=== PATIENT | male | born 2000 | race Caucasian/White ===

== ENCOUNTER 2022-06-19 10:20 | Emergency (ER) | payer SELFPAY ==
[2022-06-19 10:24] VITALS: BP 122/72; PULSE 95; RESP 14; TEMP 36.7; O2SAT 97
[2022-06-19] MEDS: Normal Saline 1,000 ML 1000 ML IV (11:03)
[2022-06-19] MEDS: Ketorolac 15 MG/ML VIAL IVP (11:20)
[2022-06-19] MEDS: Ondansetron 4 MG/2 ML VIAL IVP (11:20)
[2022-06-19 11:53] LABS: Bilirubin Negative (Negative); Blood Trace-intact (Negative); Clarity Clear (Clear); Glucose Negative (Negative); Ketones 15 mg/dL (Negative); Leukocyte Esterase Negative (Negative); Nitrite Negative (Negative); Specific Gravity 1.025 (1.005-1.025); Urobilinogen 0.2 mg/dL (Up to 0.2); pH 6.5 (5-8)
[2022-06-19 12:08] LABS: Bacteria Rare HPF (Negative); C & S Indicated? Yes; Casts Negative LPF (Negative); Crystals Negative HPF (Negative); Epithelial Cells Rare HPF (Negative); Mucus Moderate (Negative)
--- NOTE | 2022-06-19 12:57 | W.ED.GENAD ---
Discharge Plan Disposition Patient Disposition: Home Discharge Details Clinical Impression: Nausea vomiting and diarrhea Primary Care Provider: Almaz,Local ED Provider: Los Portillo Discharge Instructions Instructions: Acute Nausea and Vomiting (ED) Additional Instructions: Please stay well-hydrated and if you have any significant worsening of symptoms feel free to return the emergency department for reassessment. Otherwise follow-up with your primary care provider if not improving over the next 5 days. You may use the provided nausea medication as needed for further nausea or vomiting. Referrals: Primary Care Provider [Outside] - 5 days (As needed for reassessment) Discharge Data Discharge Date/Time-TO BE ENTERED AT DEPARTURE: 06/19/22 13:16 Medical Decision Making Patient presenting to the emergency department for chief complaint of nausea vomiting diarrhea headache and not feeling well. Patient reports yesterday after eating chicken he started getting sick. He does note that significant other had similar illness a couple days ago which she has fully resolved from. Patient has no significant or worrisome past medical history. Physical exam shows diffuse nontender abdomen with no peritoneal findings, no tenderness in areas of surgical concern and exam is otherwise unremarkable nondiagnostic. We will check patient's labs and pending results will give Toradol Zofran and fluids. CBC shows elevated white count neutrophils and low lymphocytes, slightly low magnesium at 1.7 otherwise nondiagnostic labs. Lipase is within normal range, urinalysis does show ketones and blood. Urinalysis did reflex to culture but given the patient is negative for nitrites and leukocyte esterase and has no urinary symptoms we will hold off on any antibiotics. Patient reassessed and did have improvement of symptoms so we will discharge patient to follow-up on outpatient basis or return for new or worsening symptoms. After discussion of diagnosis and plan of care patient has no further needs, questions, or concerns and states clear understanding to return to the emergency department for any worsening symptoms. This documentation was generated using [employer] dictation system, please disregard any oddities of phrase or misspellings. Lab Data Lab results reviewed: Yes I reviewed the patient's lab results. HPI General Mode of arrival: ambulatory. Date/Time Provider Initiated Documentation: 06/19/22 10:49. Limitations to Documentation: no limitations. Information obtained by: patient and RN notes reviewed. History of Present Illness 22 year old M presents to the emergency department with the chief complaint of Nausea vomiting, described as moderate, Quality is described as aching, and is localized to the abdomen. Patient reports no radiation. Patient started experiencing this day(s) (1) and it has been constant. No relieving factors improve symptom(s), Eating worsens symptoms . Patient did receive the following treatments prior to arrival, none General Stated Complaint: Nausea/Vomit/Diar CARMEN: 3 Review of Systems Constitutional Constitutional: Denies chills, Denies fever(s), Reports headache(s) and Reports poor appetite ENT Ears, Nose, Mouth, and Throat: Reports headache(s) Cardiovascular Cardiovascular: Denies chest pain and Denies dyspnea Respiratory Respiratory: Denies cough and Denies dyspnea Gastrointestinal Gastrointestinal: Reports as per HPI, Reports abdominal pain, Denies melena, Denies change in bowel habits, Denies constipation, Reports diarrhea, Reports nausea and Reports vomiting Genitourinary Genitourinary: Denies hematuria, Denies oliguria, Denies difficulty urinating, Denies urinary hesitancy, Denies urinary incontinence and Denies urinary urgency Integumentary/Breasts Skin/Breast: Denies rash Neurologic Neurologic: Reports headache(s) PFSH All Active Problems (Updated 06/19/22 @ 13:12 by Los Portillo NP) Nausea vomiting and diarrhea (Acute) Social History Smoking risk assessment performed?: No Exam Const General: cooperative Orientation: alert, awake and oriented x3 Resp Effort & Inspection: normal respiratory effort and able to speak in complete sentences Auscultation: clear to auscultation bilaterally Cardio Rate: regular rate Rhythm: regular rhythm Heart Sounds: S1 normal and S2 normal GI Palpation: soft, no hepatosplenomegaly, not firm, no guarding, no masses, no pulsatile masses, not rigid, no splenomegaly and tender (Diffuse nonfocal) Auscultation: normal bowel sounds Back/Spine/Pelvis Back: no CVA tenderness Neuro General: patient alert, patient awake, patient oriented x3, gait normal and moves all extremities Course Vital Signs Vital signs: Vital Signs Temperature 36.7 C 06/19/22 10:24 Pulse 95 H 06/19/22 10:24 Respiratory Rate 14 06/19/22 10:24 Blood Pressure 122/72 06/19/22 10:24 Pulse Oximetry 97 06/19/22 10:24 Temperature 36.7 C 06/19/22 10:24 Temperature Source Oral 06/19/22 10:24 Pulse 95 H 06/19/22 10:24 Respiratory Rate 14 06/19/22 10:24 Respiratory Effort Normal 06/19/22 11:20 Blood Pressure 122/72 06/19/22 10:24 Pulse Oximetry 97 06/19/22 10:24 Pain Level 8 06/19/22 10:24 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 Lab/Test Results Lab/Test Results: 06/19/22 11:37 Urine - Reflex from Ua Urine Culture - Pending Laboratory Tests Range/Units 06/19/22 06/19/22 06/19/22 10:43 10:43 11:37 WBC (4.4-10.8) 10^3/uL 12.12 H RBC (4.36-5.78) 10^6/uL 5.51 Hgb (13.5-17.5) g/dL 16.0 Hct (40.0-50.0) % 46.0 MCV (80-95) fL 84 MCH (27.0-33.0) pg 29.0 MCHC (32.0-36.0) % 34.8 RDW (11.8-14.1) % 11.9 Plt Count (130-400) 10^3/uL 238 MPV (8.0-11.0) fL 9.1 Immature Gran % 0.3 Neutrophils % 90.5 Lymphocytes % 4.8 Monocytes % 3.9 Eosinophils % 0.3 Basophils % 0.2 Nucleated RBC % (0.0-0.3) % 0.0 Absolute Neutrophils (1.2-6.7) 10^3/uL 10.97 H Absolute Lymphocytes (1.2-3.4) 10^3/uL 0.58 L Absolute Monocytes (0.1-0.8) 10^3/uL 0.47 Absolute Eosinophils (0.0-0.7) 10^3/uL 0.04 Absolute Basophils (0.0-0.2) 10^3/uL 0.02 Sodium (136-145) mmol/L 140 Potassium (3.5-5.1) mmol/L 3.6 Chloride (98-107) mmol/L 103 Carbon Dioxide (21.0-32.0) mmol/L 28.2 Anion Gap (3-11) mmol/L 8.8 BUN (7-18) mg/dL 13 Creatinine (0.70-1.30) mg/dL 1.0 Est GFR (CKD-EPI 2020) (mL/min/1.73m2) 109.13 Glucose (74-106) mg/dL 114 H Calcium (8.5-10.1) mg/dL 9.0 Magnesium (1.8-2.4) mg/dL 1.8 Total Bilirubin (0.2-1.0) mg/dL 1.0 AST (15-37) U/L 16 ALT (16-63) U/L 21 Alkaline Phosphatase (46-116) U/L 82 Total Protein (6.4-8.2) g/dL 7.8 Albumin (3.4-5.0) g/dL 4.4 Lipase (16-77) U/L 33 Urine Color (Yellow) Yellow Urine Clarity (Clear) Clear Urine pH (5-8) 6.5 Ur Specific [place] (1.005-1.025) 1.025 Urine Protein (Negative) mg/dL Trace H Urine Ketones (Negative) mg/dL 15 H Urine Blood (Negative) Trace-intact H Urine Nitrite (Negative) Negative Urine Bilirubin (Negative) Negative Urine Urobilinogen (Up to 0.2) mg/dL 0.2 Ur Leukocyte Esterase (Negative) Negative Urine RBC (0-2) HPF 10-20 H Urine WBC (0-5) HPF 5-10 Ur Epithelial Cells (Negative) HPF Rare Urine Crystals (Negative) HPF Negative Urine Bacteria (Negative) HPF Rare Urine Casts (Negative) LPF Negative Urine Mucus (Negative) Moderate Ur Culture Indicated? Yes Urine Glucose (Negative) mg/dL Negative
[2022-06-19 12:59] VITALS: PULSE 78; RESP 18; O2SAT 98
[2022-06-19 13:04] LABS: Abs Immature Grans 0.03 10^3/uL (0.0-0.06); Absolute Eosinophil Count 0.01 10^3/uL (0.0-0.7); Absolute Lymphocyte Count 0.41 10^3/uL (1.2-3.4); Absolute Monocyte Count 0.52 10^3/uL (0.1-0.8); Basophils % 0.2; Eosinophils % 0.1; HCT 43.1 % (40.0-50.0); Immature Grans % 0.2; Lymphocytes % 3.3; MCH 29.1 pg (27.0-33.0); MCHC 34.8 % (32.0-36.0); MCV 84 fL (80-95); MPV 9.1 fL (8.0-11.0); Monocytes % 4.2; Platelet Count 207 10^3/uL (130-400); RBC 5.16 10^6/uL (4.36-5.78); RDW 11.9 % (11.8-14.1); RDW-SD 36.1 fL; WBC 12.39 10^3/uL (4.4-10.8)
[2022-06-19 13:13] LABS: Absolute Basophil Count 0.02 10^3/uL (0.0-0.2)
[2022-06-19] MEDS: Ondansetron O.D.T. 4 MG TABEF, 3 TABS/BTL PO (13:15)
[2022-06-19 13:20] LABS: ALT 18 U/L (16-63); AST 16 U/L (15-37); Albumin 3.9 g/dL (3.4-5.0); Alkaline Phosphatase 70 U/L (46-116); Anion Gap 6.8 mmol/L (3-11); BUN 12 mg/dL (7-18); CO2 27.2 mmol/L (21.0-32.0); CREATININE 0.9 mg/dL (0.70-1.30); Calcium 8.5 mg/dL (8.5-10.1); Chloride 106 mmol/L (98-107); Estimated GFR 123.84 (mL/min/1.73m2); Glucose 100 mg/dL (74-106); Lipase 28 U/L (16-77); Magnesium 1.7 mg/dL (1.8-2.4); Potassium 4.2 mmol/L (3.5-5.1); Sodium 140 mmol/L (136-145)
== END 2022-06-19 13:16 | disposition home or self-care (01) ==
PROVIDERS: Emergency Provider Nurse Practitioner Family
DX: R19.7 Diarrhea, unspecified (principal); R11.2 Nausea with vomiting, unspecified
CPT/HCPCS: 80053; 83690; 96361; 96374; 96375; 99284; 81003; 81015; 83735; 85025; 87086; 99283; J1885; J2405